=== PATIENT | male | born 1985 | race Two or more races ===

== ENCOUNTER → 2020-05-31 | Outpatient (CLI) | payer OTHER | END | disposition home or self-care (01) | LOC: LAB 14:53 | PROVIDERS: ATTEND Physician Assistant | DX: Z20.828 Contact with and (suspected) exposure to other viral communicable diseases (principal) ==

== ENCOUNTER 2020-11-01 10:22 | Emergency (ER) | payer OTHER ==
[~2020-11-01] VITALS: Ht 175.3 cm; Wt 108.9 kg
[2020-11-01 10:53] VITALS: BP 158/98
[2020-11-03 09:29] LABS: Hepatitis B Surface Antibody Positive
[2020-11-03 12:34] LABS: Hepatitis B Surface Antigen Negative (Negative)
== END 2020-11-01 11:52 | disposition home or self-care (01) ==
LOC: ER 10:22
DX: S71.131A Puncture wound without foreign body, right thigh, initial encounter (principal); W46.0XXA Contact with hypodermic needle, initial encounter; Y93.89 Activity, other specified; Y92.89 Other specified places as the place of occurrence of the external cause; Y99.8 Other external cause status
CPT/HCPCS: 36415; 86703; 86706; 86803; 87340